=== PATIENT | female | born 1955 | race Caucasian/White ===

== ENCOUNTER 2021-01-29 15:49 | Emergency (ER) | payer MEDICARE, SELFPAY ==
--- NOTE | ~2021-01-29 | XR_ITS ---
EXAMINATION: XR shoulder RT min 2V DATE: 01/29/2021 16:06 INDICATION: Right shoulder injury and pain. TECHNIQUE: 4 views of right shoulder were obtained. COMPARISON: None. FINDINGS: There is an avulsion fracture of greater tuberosity of proximal right humerus with 2 mm dis placement. Joint spaces are normal. IMPRESSION: 1. One-part fracture of proximal right humerus. Reviewed, dictated and finalized at location A.
[2021-01-29 15:58] VITALS: BP 133/75; PULSE 103; RESP 18; TEMP 36.4; O2SAT 95
--- NOTE | 2021-01-29 16:14 | ED.UPPEXIN ---
HPI - Extremity Injury (Upper) General Chief Complaint: Extremity Injury, Upper Stated Complaint: R SHOULDER INJURY Source: patient and RN notes reviewed Limitations: no limitations History of Present Illness HPI narrative: The right-handed obese patient, on several meds, presents with right shoulder pain. Patient states she has about a 1 month long history of right shoulder pain that is mild, worse with motion, better at rest, located somewhat over the deltoid, and unrelieved with NSAIDs, Lyrica -for fibromyalgia. She attributes pain onset to when she slipped and fell a month ago, and then saw her PMD [no imaging]. No bleeding, deformity, numbness/weakness, other injury. Discussed plan to provide anti-inflammatories, nighttime mild opiate pain meds, and physical therapy example. Screening x-ray reveals nondisplaced, 1 part superior tuberosity fracture Related Data Home Medications Medication Instructions Recorded Confirmed amitriptyline 01/29/21 atorvastatin 01/29/21 glipizide 01/29/21 meloxicam 01/29/21 metformin 01/29/21 pioglitazone 01/29/21 Allergies Allergy/AdvReac Type Severity Reaction Status Date / Time No Known Allergies Allergy Verified 01/29/21 15:59 Review of Systems Review of Systems: Narrative: General/Constitutional: No weight loss,fever Eyes: N0: Redness,discharge Ears/Nose/Throat: No: Epistaxis,ear discharge Respiratory: Denies: Hemoptysis Gastrointestinal: No Vomiting, Bleeding-rectal Skin: No Lumps, eruption Neurologic: No Focal Weakness,Sz Hematologic: Denies: Petechiae/Purpura Psychiatric: No: Suicida ideationl All Other Systems: Reviewed and Negative PMFSH Comments At time of signature, agree with nursing past medical, surgical, social and family history. There is no relevant family history pertinent to the presenting complaint Exam Narrative: Exam Narrative: General Appearance: Obese/well nourished, , Conjunctiva clear Mouth/Throat: Normal appearing, Normal lips, Supple Respiratory: Airway patent, No respiratory distress MS-shoulder: Normal strength (mostly intact, mild limited IR/ ER , flexion/extension- by pain), Tenderness (supraspinatus ,laterally deltoid and subacromial bursa, with mild decreased ROM), no swelling, Other (neg drop arm, neg Neer, neg Jobes/ empty can) Skin: Warm, Dry, Normal color Neurological: A&O x3, Speech clear, CN II-XII intact Psychiatric: Normal mood, Normal affect Course Course Emergency Course: Films visualized, interpreted by radiologist, agree, ABnormal see report Vital Signs Vital signs: Vital Signs Temperature 97.5 F L 01/29/21 15:58 Pulse Rate 103 H 01/29/21 15:58 Respiratory Rate 18 01/29/21 15:58 Blood Pressure 133/75 01/29/21 15:58 Pulse Oximetry 95 01/29/21 15:58 Temperature 97.5 F L 01/29/21 15:58 Pulse Rate 103 H 01/29/21 15:58 Respiratory Rate 18 01/29/21 15:58 Blood Pressure 133/75 01/29/21 15:58 Pulse Oximetry 95 01/29/21 15:58 Discharge Plan Discharge Clinical Impression: Fracture, humerus closed Qualifiers: Encounter type: initial encounter Humerus Location: greater tuberosity Fracture alignment: displaced Laterality: right Qualified Code(s): S42.251A - Displaced fracture of greater tuberosity of right humerus, initial encounter for closed fracture Patient Disposition: Home, Self-Care Condition: Stable Instructions: Shoulder Bursitis (ED) Additional Instructions: See your prior PMD, physical therapist or orthopedic referral Prescriptions: New prednisone 20 mg tablet 60 mg PO DAILY Qty: 9 RF: 0 acetaminophen-codeine 300-30 mg tablet 1 - 2 tablet PO HS PRN (Reason: pain) Qty: 14 RF: 0 No Action amitriptyline RF: 0 atorvastatin RF: 0 glipizide RF: 0 meloxicam RF: 0 metformin RF: 0 pioglitazone RF: 0 Follow-up/Referrals: Wilfredo Pearson MD [Physician] - [place]
== END 2021-01-29 16:40 | disposition home or self-care (01) ==
PROVIDERS: Emergency Provider Emergency Medicine; PCP Family Medicine
DX: S42.251A Displaced fracture of greater tuberosity of right humerus, initial encounter for closed fracture (principal); E78.00 Pure hypercholesterolemia, unspecified; M79.7 Fibromyalgia; M19.90 Unspecified osteoarthritis, unspecified site; E11.9 Type 2 diabetes mellitus without complications; Z79.84 Long term (current) use of oral hypoglycemic drugs; W01.0XXA Fall on same level from slipping, tripping and stumbling without subsequent striking against object, initial encounter
CPT/HCPCS: 73030; 99213; A4565; G0463